=== PATIENT | male | born 1995 | race Two or more races ===

== ENCOUNTER 2019-01-03 01:27 | Emergency (ER) | payer OTHER ==
[~2019-01-03] VITALS: Ht 160 cm; Wt 61.2 kg
--- NOTE | 2019-01-03 01:42 | NUR ---
ED Nurse Note: Pt arrived ambulatory into ED for laceraton on left thumb, sizing approximately 1/2 inch. 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 Pt states pain is 3/10, aching. States he received tetanus shot one before already. Wound cleaned with NS.
[2019-01-03 01:47] VITALS: BP 136/80
[2019-01-03] MEDS ORDERED: Lidocaine 1% 10mg/ml/Epi 0.005mg/ml 30ml vial INJ ONE (01:58)
[2019-01-03] MEDS ORDERED: Lidocaine 1% 10mg/ml/EPI 0.01mg/ml 20ml INJ ONE (02:00)
[2019-01-03] MEDS ORDERED: Bacitracin Oint UD TOPIC ONE ×2 (02:20→02:30)
[2019-01-03] MEDS ORDERED: BACITRACIN15 GM TOPIC (02:23)
--- NOTE | 2019-01-03 02:34 | NUR ---
ED Nurse Note: pt cleared to per ERMD, pt discharge and aftercare instruction provided , pt education done via discussion and handout, pt advised to return in 7-10 days for suture removal, pt verbalized understanding and agrees with plan, vss, ambulatory w/ steady gait, left w/ all belongings. ID band removed.
[2019-01-03 02:35] VITALS: BP 129/83
--- NOTE | 2019-01-03 03:10 | Emergency Room Report ---
History of Present Illness General Chief Complaint: Laceration Source: Patient Present Illness HPI 23-year-old male presents ED for evaluation. Patient presents with laceration to left thumb. 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 Tetanus is up-to-date. Pain is dull, 4 out of 10, nonradiating. Denies any other injuries. No other aggravating relieving factors. Denies any other associated symptoms Allergies: Coded Allergies: No Known Allergies (Unverified , 01/03/19) Patient History Past Medical History: none Past Surgical History: none Pertinent Family History: none Social History: Denies: smoking, alcohol use, drug use Immunizations: UTD Reviewed Nursing Documentation: PMH: Agreed; PSxH: Agreed Nursing Documentation-PMH Past Medical History: No Stated History Review of Systems All Other Systems: negative except mentioned in HPI Physical Exam Vital Signs Date Time Temp Pulse Resp B/P (MAP) Pulse Ox O2 Delivery O2 Flow Rate FiO2 01/03/19 01:35 98.2 72 16 136/80 97 Room Air Sp02 EP Interpretation: reviewed, normal General Appearance: no apparent distress, alert, GCS 15, non-toxic Head: normocephalic Eyes: bilateral eye normal inspection, bilateral eye PERRL ENT: normal ENT inspection Neck: normal inspection Respiratory: normal inspection Cardiovascular #1: normal inspection Gastrointestinal: normal inspection Rectal: deferred Genitourinary: no CVA tenderness Musculoskeletal: back normal, gait/station normal, normal range of motion, non- tender Neurologic: alert, oriented x3, responsive, motor strength/tone normal, sensory intact, speech normal Psychiatric: normal inspection Skin: laceration - 2cm laceration to L thumb Lymphatic: normal inspection Procedures Laceration/Wound Repair Laceration/Wound Repair : Consent: Verbal Wound Location: upper extremity - L thumb Wound's Depth, Shape: linear Wound Explored: clean Betadine Prep?: Yes Anesthesia: Lidocaine w/ Epi Wound Debrided: minimal Wound Repaired With: sutures Suture Size/Type: 5:0, proline Layer Closure?: No Sterile Dressing Applied?: Yes Splint Applied?: No Sling Applied?: No Patient Tolerated: Well Complications: None Medical Decision Making Diagnostic Impression: Primary Impression: Laceration ER Course Hospital Course 23-year-old M presents to ED s/p laceration L thumb Clinical course Patient placed on stretcher. After initial history and physical, wound irrigated. digital block provided with lidocaine. Laceration repaired w/o complication. Dressing applied. Discussed findings with patient. Safe for discharge close outpatient follow- up. Wound care instructions given. Return to ED in 7-10 days for suture removal Patient does not have a PMD. We'll provide referrals Diagnosis - laceration Stable and discharged to home. wound Care instructions given. Followup with PMD in 7-10 days for suture removal. Return to ED if any signs of infection develop Last Vital Signs Date Time Temp Pulse Resp B/P (MAP) Pulse Ox O2 Delivery O2 Flow Rate FiO2 01/03/19 02:35 98.2 77 16 129/83 99 Room Air Status: improved Disposition: HOME, SELF-CARE Condition: Stable Scripts Bacitracin (Bacitracin) 28.4 Gm Oint...g. 1 APPLIC TOPIC THREE TIMES A DAY, #28.4 GM Prov: Adán Carrillo MD 01/03/19 Referrals: NOT CHOSEN IPA/,REFERRING (PCP) [facility] Yosef Arana [facility]. [facility] Departure Forms: Return to Work Return to Work Date: Jan 03, 2019 Work Restrictions: No Heavy Lifting Patient Instructions: Laceration Care, Adult Additional Instructions: have sutures removed in 7-10 days. Adán Carrillo MD Jan 03, 2019 03:10
== END 2019-01-03 02:31 | disposition home or self-care (01) ==
LOC: EMR 01:51
DX: S61.012A Laceration without foreign body of left thumb without damage to nail, initial encounter (principal); W25.XXXA Contact with sharp glass, initial encounter; Y92.9 Unspecified place or not applicable; Y99.0 Civilian activity done for income or pay
CPT/HCPCS: 99283